=== PATIENT | male | born 1985 | race Caucasian/White ===

== ENCOUNTER 2019-04-29 17:30 | Emergency (ER) | payer BC, OTHER ==
[~2019-04-29] VITALS: Ht 167.6 cm; Wt 131.5 kg
[~2019-04-29 17:30] MED LIST: CELEXA20 MG PO; CLEOCIN HCL150 MG PO; LEVOTHYROXIN0.075 MG PO; LIPITOR 20 MG T20 M1 PO; LISINOPRIL20 MG PO; LORTAB 7.5-3251 EACH PO; NOHOMEMEDICATIONS
[2019-04-29] MEDS ORDERED: ALLOPURINOL 30300 M1 PO (17:43)
[2019-04-29] MEDS ORDERED: OMEPRAZOLE 20 M20 M1 PO (17:43)
[2019-04-29] MEDS ORDERED: VIBRAMYCIN 100100 M2 PO (19:47)
[2019-04-29] MEDS ORDERED: KEFLEX500 M1 PO (19:47)
[2019-04-29 20:10] VITALS: BP 124/78
== END 2019-04-29 20:10 | disposition home or self-care (01) ==
LOC: ER 17:30
DX: L05.01 Pilonidal cyst with abscess (principal); J06.9 Acute upper respiratory infection, unspecified; Z88.2 Allergy status to sulfonamides; I10 Essential (primary) hypertension; E78.5 Hyperlipidemia, unspecified; J45.909 Unspecified asthma, uncomplicated; F32.9 Major depressive disorder, single episode, unspecified; E03.9 Hypothyroidism, unspecified; Z98.890 Other specified postprocedural states

== ENCOUNTER 2019-04-30 21:16 | Emergency (ER) | payer BC, OTHER ==
[~2019-04-30] VITALS: Ht 167.6 cm; Wt 131.5 kg
[~2019-04-30 21:16] MED LIST changes: +ALLOPURINOL 30300 M1 PO; +KEFLEX500 M1 PO; +OMEPRAZOLE 20 M20 M1 PO; +VIBRAMYCIN 100100 M2 PO
[2019-04-30 22:55] LABS: HEMOGLOBIN 13.1 gm/dL (14.0-18.0); MCH 29.6 pg (26.0-34.0); MCHC 32.7 g/dL (28.0-37.0); MCV 90.5 fL (80.0-100.0); PLATELET COUNT 137 thou/uL (150-400); RBC 4.42 mil/uL (4.50-6.00); RDW 12.7 % (10.5-14.5); WBC 4.2 thou/uL (4.0-11.0)
[2019-04-30 23:06] LABS: CALCIUM 8.5 mg/dL (8.5-10.1); CREATININE 1.3 mg/dL (0.7-1.3); POTASSIUM 3.2 mmol/L (3.5-5.1)
[2019-04-30 23:11] LABS: ALBUMIN 3.2 g/dL (3.4-5.0); DIRECT BILIRUBIN 0.2 mg/dL (<0.1-0.2); TOTAL BILIRUBIN 0.5 mg/dL (<0.1-1.0); TOTAL PROTEIN 7.6 g/dL (6.4-8.2)
[2019-04-30 23:40] LABS: ABSOLUTE NEUTROPHILS 3.2 thou/uL (1.4-8.2); METAMYELOCYTES 4 %; MYELOCYTES 1 %
[2019-05-01 00:49] LABS: URINE BILIRUBIN 1+ (Negative); URINE BLOOD 2+ (Negative); URINE CLARITY CLEAR; URINE COLOR YELLOW; URINE GLUCOSE-RANDOM* NEGATIVE (Negative); URINE KETONES 2+ (Negative); URINE LEUKOCYTES-REFLEX NEGATIVE (Negative); URINE NITRITE-REFLEX NEGATIVE (Negative); URINE PROTEIN (DIPSTICK) 3+ (Negative); URINE SPECIFIC GRAVITY >= 1.030 (1.005-1.035)
[2019-05-01 00:53] LABS: ICTOTEST (BILI CONFIRMATORY) Positive (Negative)
[2019-05-01 01:01] LABS: SQUAMOUS 0-3 Few /LPF (0-3)
[2019-05-01 01:02] LABS: BACTERIA-REFLEX None Seen /HPF (None Seen); CASTS None Seen /LPF (None Seen); CRYSTALS None Seen /LPF (None Seen); MUCUS 0-3 Light strn/LPF (None Seen); URINE RBC 0-2 Rare /HPF (0-2); URINE WBC-REFLEX 0-5 Rare /HPF (0-5)
[2019-05-01 01:53] VITALS: BP 117/89
--- NOTE | 2019-05-02 19:05 | EKG ---
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 : [id number] Requested By: Chantel Morales Order Number: [id number] MD: Jean Paul Ceballos Measurements Intervals [place] Rate: 110 P: 62 SC: 154 QRS: 41 QRSD: 81 T: 28 QT: 307 QTc: 416 Interpretive Statements Sinus tachycardia Compared to ECG 02/13/2016 18:17:26 No significant changes Electronically Signed On 05-02-2019 19:04:29 [employer]ERICAL STOCK INSPECTOR by Jean Paul Ceballos [email or web address] <ELECTRONICALLY SIGNED> By: Jean Paul Ceballos MD 05/02/19 1904 2212 11 Jean Paul Ceballos MD /KACEY
== END 2019-05-01 01:54 | disposition home or self-care (01) ==
LOC: ER 21:16
PROVIDERS: Emergency Medicine
DX: R50.9 Fever, unspecified (principal); I10 Essential (primary) hypertension; E78.5 Hyperlipidemia, unspecified; E03.9 Hypothyroidism, unspecified; J45.909 Unspecified asthma, uncomplicated; F32.9 Major depressive disorder, single episode, unspecified; Z88.2 Allergy status to sulfonamides